=== PATIENT | female | born 1995 | race African-American/Black ===

== ENCOUNTER 2016-12-18 19:29 | Emergency (ER) | payer OTHER ==
[~2016-12-18] VITALS: Ht 175.3 cm; Wt 101.8 kg
[~2016-12-18 19:29] MED LIST: ANAPROX DS550 M1 PO; BENTYL10 MG PO; METFORMIN HCL1000 MG PO; MOTRIN800 MG PO; PERCOCET 5/31 TABLET PO; TRAMADOL HCL50 MG PO; ZOFRAN4 MG PO
[2016-12-18 20:48] LABS: HEMATOCRIT 42.3 % (36.0-46.0); MCH 28.6 PG (29.0-34.0); MCHC 32.9 G/DL (30.0-36.0); MEAN PLAT.VOLUME 12.9 uM^3 (9.5-12.4); PLATELET COUNT 229 K/uL (156-360); RBC DIS.WIDTH-CV 12.3 % (11.8-14.6); RBC DIS.WIDTH-SD 39.2 % (39-53); RED BLOOD COUNT 4.86 M/uL (3.80-5.20); WHITE BLOOD COUNT 9.3 K/uL (4.1-10.2)
[2016-12-18 20:59] LABS: CHLORIDE 102 mEq/L (99-109); POTASSIUM 4.1 mEq/L (3.7-5.4); SODIUM 139 mEq/L (136-147)
[2016-12-18 21:02] LABS: GLUCOSE 326 mg/dL (70-99)
[2016-12-18 21:03] LABS: ANION GAP 15 MEQ/L (2-14)
[2016-12-18 21:04] LABS: TOTAL BILIRUBIN 0.4 mg/dL (0.0-1.0)
[2016-12-18 21:05] LABS: ALKALINE PHOSPHATASE 73 IU/L (3-129); GFR ESTIMATE (CALCULATED) > 59 mL/min/
[2016-12-18 21:06] LABS: UREA NITROGEN (BUN) 13 mg/dL (9-23)
[2016-12-18 21:15] LABS: QUANTITATIVE HCG < 4.0 MIU/ML
[2016-12-18 21:35] LABS: CARBON DIOXIDE (BICARBONATE) 27.4 MEQ/L (20-31)
[2016-12-18 22:12] LABS: ADD MIUA? YES; BILIRUBIN NEGATIVE; BLOOD NEGATIVE; COLOR YELLOW ((YELLOW)); GLUCOSE (STRIP) >=500; KETONES 5; LEUKOCYTES NEGATIVE; NITRITE NEGATIVE; PROTEIN (STRIP) NEGATIVE; SPECIFIC GRAVITY 1.027 (1.000-1.030); UROBILINOGEN 0.2 MG/DL (0.2-1.0)
[2016-12-18 22:21] LABS: POINT-OF-CARE METER ID UU13113800
[2016-12-18 22:29] LABS: BACTERIA RARE /HPF; EPITHELIAL CELLS RARE /HPF; MUCUS TRACE /LPF; UCUL ADDED? NO
[2016-12-18 22:43] LABS: RED BLOOD CELLS RARE /HPF (0-5); WHITE BLOOD CELLS RARE /HPF (0-5)
[2016-12-18 22:45] LABS: CASTS NONE SEEN /LPF; CRYSTALS NONE SEEN
[2016-12-18 22:54] VITALS: BP 124/78
[2016-12-20 13:42] LABS: CHLAMYDIA TRACHOMATIS NEGATIVE; NEISSERIA GONORRHOEAE NEGATIVE
== END 2016-12-18 22:55 | disposition home or self-care (01) ==
LOC: EME 19:29 → RME 19:29
PROVIDERS: Physician Assistant Medical
DX: B34.9 Viral infection, unspecified (principal); E11.65 Type 2 diabetes mellitus with hyperglycemia; J02.9 Acute pharyngitis, unspecified; R05 Cough; R19.7 Diarrhea, unspecified; N89.8 Other specified noninflammatory disorders of vagina; H92.09 Otalgia, unspecified ear; Z79.4 Long term (current) use of insulin; F17.200 Nicotine dependence, unspecified, uncomplicated
CPT/HCPCS: 80053; 81003; 82010; 82803; 82948; 84702; 85027; 87210; 87491; 87591; 99281; 99284